=== PATIENT | female | born 1990 | race Caucasian/White ===

== ENCOUNTER → 2017-02-24 | Outpatient (CLI) | payer BC ==
[~2017-02-24] MED LIST: CETI10TA24 PO; CLON0.5T3 PO; DICL75TA2 PO; GABA300C10 PO; HYDR-3101 PO; MAGN1POW13 MC; SERT100T PO; TIZA4TAB PO; TRAM50TA PO
--- NOTE | 2017-02-24 12:06 | DIREP ---
PROCEDURE:OBSTETRICAL ULTRASOUND, 2nd AND 3rd TRIMESTER TECHNIQUE:Transabdominal ultrasound of the pelvic contents was performed. COMPARISON:None. INDICATIONS:Z3A.17 IUP @ 17 WKS FINDINGS: NUMBER:Lynch. POSITION:Cephalic AMNIOTIC FLUID VOLUME:YAMILE - 20.1 cm PLACENTA:Anterior, with no evidence of placenta previa. CERVIX:3.0 cm length. HEART RATE:151 bpm BIPARIETAL DIAMETER:5.0 cm (21 W 1 D), 47.9 percentile HEAD CIRCUMFERENCE:19.5 cm (21 W 4 D), 57.9 percentile ABD CIRCUMFERENCE:17.1 cm (21 W 6 D), 69.1 percentile FEMUR LENGTH:3.7 cm (21 W 3 D), 53.6 percentile ESTIMATED WEIGHT:455.2 gm (1 lb, 0oz), 52.9 percentile ULTRASOUND GA:21 W 5 D ULTRASOUND JASON:July 02, 2017 CLINICAL GA: 21 W 2 D CLINICAL JASON: July 05, 2017 ANATOMY CEREBELLUM:2.2 cm NUCHAL FOLD:4.7 mm CISTERNA MAGNA:4.7 mm LATERAL CEREBRAL VENTRICLES:4.8 mm CHOROID PLEXUS:Normal. MIDLINE FALX:Normal. CAVUM SEPTUM PELLUCIDUM:Present. SPINE:Normal. HEART:Normal. UPPER LIP:Limited STOMACH:Present. KIDNEYS:Normal - no hydronephrosis. BLADDER:Normal. UMBILICAL CORD INSERTION:No gross abnormality demonstrated CORD VESSEL NUMBER:Normal 3 vessel cord. EXTREMITIES:Normal. CONCLUSION: 1. Viable intrauterine . 2. No anomalies detected on today's examination. 3. biometrics suggest a gestational age of approximately 21 W 5 D, with an Estimated Weight (EFW) of 455.2 gm (1 lb, 0oz). Dictated by: JUVENAL Physician on 02/24/2017 at 11:00 AM ac
== END | disposition home or self-care (01) ==
LOC: RAD 09:33
PROVIDERS: ATTEND Hospitalist
DX: Z34.82 Encounter for supervision of other normal pregnancy, second trimester (principal); Z3A.17 17 weeks gestation of pregnancy
CPT/HCPCS: 76811

== ENCOUNTER 2017-05-19 13:35 | Observation (INO) | payer BC ==
[~2017-05-19] VITALS: Ht 152.4 cm; Wt 83.9 kg
[2017-05-19] MEDS ORDERED: SERT25TA PO (14:08)
[2017-05-19 14:50] LABS: BILIRUBIN,URINE NEGATIVE (NEGATIVE); UROBILINOGEN,URINE NORMAL (NEGATIVE)
[2017-05-19 15:09] LABS: APPEARANCE,URINE CLEAR (CLEAR); UA COLOR YELLOW (YELLOW)
[2017-05-19 15:10] LABS: WBC,URINE 0-2 WBC/HPF (0-2)
[2017-05-19 16:27] VITALS: BP 115/72
== END 2017-05-19 16:30 | disposition home or self-care (01) ==
LOC: ATP 13:35
PROVIDERS: ADMIT Hospitalist; ATTEND Hospitalist
DX: O21.0 Mild hyperemesis gravidarum (principal); O26.893 Other specified pregnancy related conditions, third trimester; R51 Headache; O62.9 Abnormality of forces of labor, unspecified; Z3A.33 33 weeks gestation of pregnancy
CPT/HCPCS: 59025; 80307; 81000; 87086; G0378 ×3

== ENCOUNTER → 2017-05-31 | Outpatient (CLI) | payer BC ==
[~2017-05-31] MED LIST changes: +SERT25TA PO
--- NOTE | 2017-05-31 12:04 | DIREP ---
PROCEDURE:US BIOPHYSICAL PROFILE W/O NON STRESS COMPARISON:[facility], US, US OB 2 3TRI DETAILED TRANSABD, 02/24/2017, 10:01 AM. INDICATIONS:R73.02 IMPAIRED GLUCOSE TOLERANCE FINDINGS: Breathing:Normal, 2. Movement:Normal, 2. Tone:Normal, 2. Fluid:Normal, 2. Total: 8 / 8. Cervical Length: 3.5 cm. YAMILE: LVP: 7.0 cm. Position: Cephalic. Placental Location: Fundal. Previa: None demonstrated. Fetus Summary Estimated Weight:2861 g., (79.8 percentile) Heart Rate:159 bpm Gestational Age (BPD):8.8, (35 weeks, 5 days), 73.6 percentile. Gestational Age (HC):31.9 cm, (35 weeks, 6 days), 38.2 percentile. Gestational Age (AC):32.3 cm, (36 weeks, 1 day), 86.1 percentile. Gestational Age (FL):7.1 cm, (36 weeks, 2 days), 84.7 percentile. EGA based on biometrics: 36 weeks, 0 days JASON based on biometrics: June 28, 2017 Clinical GA: 35 weeks, 0 days Clinical JASON: July 05, 2017 CONCLUSION:Intrauterine gestation with estimated due date of 06/28/2017. Biophysical profile 8 out of 8. Dictated by: JUVENAL Physician on 05/31/2017 at 11:14 AM ac
== END | disposition home or self-care (01) ==
LOC: RAD 09:48
PROVIDERS: ATTEND Hospitalist
DX: O26.893 Other specified pregnancy related conditions, third trimester (principal); Z3A.36 36 weeks gestation of pregnancy
CPT/HCPCS: 59025; 76815; 76819

== ENCOUNTER → 2017-06-25 | Outpatient (CLI) | payer BC ==
--- NOTE | 2017-06-25 17:03 | DIREP ---
PROCEDURE:US BIOPHYSICAL PROFILE W/O NON STRESS COMPARISON:[facility], US OB 2 3TRI DETAILED TRANSABD, 02/24/2017, 10:01 AM. [facility], US BIOPHYSICAL PROFILE W/O NON STRESS, 05/31/2017, 10:19 AM. INDICATIONS:[id number] MATERNAL CARE FOR ABNORMALITIES OF HEART RATE OR RHYTHM THIR FINDINGS: Breathing:Normal, 2. Movement:Normal, 2. Tone:Normal, 2. Fluid:Normal, 2. Summary Fetus Summary Estimated Weight:3953.49 g (91 percentile) Heart Rate:142.50 1/min Gestational Age (BPD):38 weeks, 5 days Gestational Age (HC):39 weeks, 0 days Gestational Age (AC):41 weeks, 0 days Gestational Age (FL):38 weeks, 6 days EGA based on biometrics: 39 W 3D Cervical Length: Limited transabdominal assessment YAMILE: Normal, LVP 6.5 cm Position: Cephalic Placental Location: Fundal Previa: None demonstrated. CONCLUSION: 1. Single live intrauterine with appropriate interval growth. 2. BPP 09/22. Dictated by: Jenna Dillon MD on 06/25/2017 at 04:58 PM
== END | disposition home or self-care (01) ==
LOC: RAD 15:58
PROVIDERS: ATTEND Hospitalist
DX: O36.8331 Maternal care for abnormalities of the fetal heart rate or rhythm, third trimester, fetus 1 (principal); Z3A.39 39 weeks gestation of pregnancy
CPT/HCPCS: 59025; 76815; 76819

== ENCOUNTER 2017-06-27 19:21 | Inpatient (IN) | payer BC ==
[~2017-06-27] VITALS: Ht 170.2 cm; Wt 85.3 kg
--- NOTE | 2017-06-27 19:53 | PRM.DELNOT ---
Delivery Summary Delivery: Spont. Vaginal Delivery (@ 1815 in her car in the driveway of a house in [place], [place]! Bilateral first degree periurethral lacs, hemostatic and so not repaired.) EBL: 200 Scores: not assigned Sex of Infant: Female Weight (Grams): 3136 Presentation: vtx ROSEMARIE NEVILLE MD June 27, 2017 19:53
[2017-06-27] MEDS ORDERED: MYLANTA PO PRN (20:00)
[2017-06-27] MEDS ORDERED: LANOLIN HYDROUS TP PRN (20:00)
[2017-06-27] MEDS ORDERED: NORCO 5MG PO PRN ×2 (20:00)
[2017-06-27] MEDS ORDERED: TYLENOL PO PRN (20:00)
[2017-06-27] MEDS ORDERED: MOTRIN PO PRN (20:00)
[2017-06-27] MEDS ORDERED: DERMOPLAST SPRAY TP PRN (20:00)
[2017-06-27] MEDS ORDERED: LR/PITOCIN 500 ML IV SCH (20:00)
--- NOTE | 2017-06-27 20:07 | PCM.HP ---
OB - Chief Complaint & HPI Date of Admission: Date of Admission: June 27, 2017 at 19:21 Diagnosis Alida Aviles is a 26yo WF with [employer] with me at my office at [facility] [place], who delivered this evening at 1815 in her car in her ex-'s driveway in [place]. She was 38 6/7 weeks' gestation. Questionable meconium staining of fluid/membranes. Apgars questionably 8 and 9. EMS was called and they brought the patient to the hospital at 1850, with the placenta still attached. I just delivered the placenta and examined the patient for lacerations; she has bilateral first degree periurethral lacerations which are hemostatic and so I did not repair them. Pt did receive one dose of IV Toradol here on our unit. Pt comfortable with good latch of baby to breast. This patient has an autoimmune disease (chronic fatigue syndrome?) and she was watching her diet closely for gluten and sugar--and she saw improvement in her joint pain and her digestion. She was on Zoloft 25mg's PO QD during this , which I prescribed for her. Alida was on several nutritional supplements during the too, such as Curamin (curcumin and boswellia), Chlorella, probiotics, digestive enzymes, and fish oil. Chief Complaint/History : 4 Para: 3 EDC: July 05, 2017 EGA: 38 6/7 weeks Reason for admission: other (S/P DELIVERY AT HOME) Admission Nurse Assessment Rev: Yes OB - History Hx of Present Care: Good Care Ultrasounds: Normal mid trimester US Obstetrical Complications: None Medical Complications: None Other Concerns: Pt was monitoring her sugars for me, twice per day (fasting, and then two hour postprandial for one of her daily meals), and they have all been all under 100 ( I wanted her fastings to be lower). Past Family/Social History * Past Medical, Surgical, Family and Obstetric Histories reviewed from chart. GBS Status: Unknown OB - Admission Exam Physical Exam HEENT: NCAT Lungs: Clear Abdomen: Gravid, Non tender Extremities: Normal Reflexes: Normal Cervical Dilatation: other (UMBILICAL CORD SEEN EXTRUDING FROM VAGINA--NO HEMORRHAGE/BLEEDING) Presentation: vtx OB - Assessment/Plan Assessment Assessment: other (S/P DELIVERY AT HOME, NOW S/P DELIVERY OF PLACENTA) Plan Plan: Other (ROUTINE CARE) ROSEMARIE NEVILLE MD June 27, 2017 20:07
[2017-06-27 20:09] VITALS: BP 129/78
[2017-06-27] MEDS ORDERED: COLACE PO SCH (21:00)
[2017-06-27] MEDS ORDERED: LIDOCAINE 1% VIAL ONE (21:50)
[2017-06-27] MEDS ORDERED: WATER ONE (21:52)
[2017-06-28 05:05] LABS: BASOPHIL % 0.2 % (0.0-0.2); EOSINOPHIL # 0.2 10^3/uL (0.0-0.2); EOSINOPHIL % 1.8 % (0.0-5.0); HEMOGLOBIN 10.4 g/dL (12.0-15.0); LYMPHOCYTES # 3.3 10^3/uL (1.0-4.8); LYMPHOCYTES % 26.1 % (24.0-44.0); MEAN CELL HGB 23.4 pg (26-34); MEAN CELL HGB CONCENTRATION 31.1 g/dL (33-37); MEAN CORP VOLUME 75.2 fL (78-100); MEAN PLATELET VOLUME 10.1 fL (7.8-11.0); MONOCYTES # 1.2 10^3/uL (0.3-0.8); MONOCYTES % 9.6 % (5.0-12.0); NEUTROPHIL # 7.9 10^3/uL (1.8-7.7); NEUTROPHILS % 61.7 % (41.0-85.0); RED CELL DISTRIBUTION WIDTH 15.9 % (11.5-14.5); WHITE BLOOD CELL 12.7 10^3/uL (4.5-11.0)
[2017-06-28] MEDS: TORADOL IV PRN ×3 (07:01→22:21)
--- NOTE | 2017-06-28 07:01 | NUR ---
Meds Please see CPN for med times.
[2017-06-28] MEDS ORDERED: TUCKS ONE (08:08)
[2017-06-28] MEDS ORDERED: DERMOPLAST SPRAY TP ONE (08:08)
[2017-06-28] MEDS: TUCKS TP PRN (08:25)
[2017-06-28] MEDS ORDERED: TORADOL ONE ×2 (12:39→21:56)
[2017-06-29] MEDS ORDERED: TORADOL ONE (07:32)
[2017-06-29] MEDS: TORADOL IV PRN (07:44)
[2017-06-29] MEDS ORDERED: SERT25TA PO (19:12)
[2017-06-29] MEDS ORDERED: IBUP-1131 PO (19:12)
--- NOTE | 2017-06-29 19:16 | PRM.DC ---
OB Discharge Summary Discharge Summary Discharge Diagnosis: Status Post (Pt delivered in her vehicle here in [place] and then was brought to the hospital by EMS...and I delivered the placenta.) Complications: No Complications Abnormal Lab Results Laboratory Tests Test 06/28/17 04:55 White Blood Count 12.7 10^3/uL Red Blood Count 4.44 10^6/uL Hemoglobin 10.4 g/dL Hematocrit 33.4 % Mean Corpuscular Volume 75.2 fL Mean Corpuscular Hemoglobin 23.4 pg Mean Corpuscular Hemoglobin Concent 31.1 g/dL Red Cell Distribution Width 15.9 % Platelet Count 225 10^3/uL Mean Platelet Volume 10.1 fL Neutrophils (%) (Auto) 61.7 % Lymphocytes (%) (Auto) 26.1 % Monocytes (%) (Auto) 9.6 % Neutrophils # (Auto) 7.9 10^3/uL Lymphocytes # (Auto) 3.3 10^3/uL Monocytes # (Auto) 1.2 10^3/uL Absolute Immature Granulocyte (auto 0.08 10^3 u/L Eosinophils % 1.8 % Basophils % 0.2 % Basophils # 0.0 10^3/uL Eosinophil Count 0.2 10^3/uL Percent Immature Gran (Cell Imm) 0.60 % Medications: Motrin (Rx for Motrin 800mg's sent to [facility] here in [place] electronically. Rx for Zoloft 50mg's sent to [facility] here in [place] electronically.) Discharge Disposition: Stable Discharge Instructions: Pelvic Rest x 6 Weeks, Clinic F/U 1-2 Weeks, Regular Diet, Regular Activity, Meds as Prescribed, Call for Problems ROSEMARIE NEVILLE MD June 29, 2017 19:16
[2017-06-29] MEDS ORDERED: MOTRIN ONE (19:36)
[2017-06-29] MEDS ORDERED: TUCKS ONE (19:39)
[2017-06-29] MEDS: TUCKS TP PRN (19:43)
[2017-06-29 19:55] VITALS: BP 124/78
== END 2017-06-29 20:35 | disposition home or self-care (01) | DRG 769 ==
LOC: LND 19:21
PROVIDERS: ADMIT Hospitalist; ATTEND Hospitalist
PROC: 10D17ZZ Extraction of Products of Conception, Retained, Via Natural or Artificial Opening (ICD-10-PCS; principal; 2017-06-27)
DX: O71.82 Other specified trauma to perineum and vulva (principal); R53.82 Chronic fatigue, unspecified; Z39.0 Encounter for care and examination of mother immediately after delivery
CPT/HCPCS: 36415; 85025; 86900; J1885; J2001; J2590